=== PATIENT | male | born 1965 | race Caucasian/White ===

== ENCOUNTER 2016-06-10 17:39 | Emergency (ER) | payer OTHER ==
[2016-06-10] MEDS ORDERED: LIDOCAINE 5% PATCH ONE (19:07)
[2016-06-10] MEDS ORDERED: PREDNISONE 20 MG TABLET ONE (19:08)
== END 2016-06-10 19:52 | disposition home or self-care (01) ==
LOC: ED 17:39
DX: M54.42 Lumbago with sciatica, left side (principal); I10 Essential (primary) hypertension; E11.9 Type 2 diabetes mellitus without complications; F17.210 Nicotine dependence, cigarettes, uncomplicated; Z79.84 Long term (current) use of oral hypoglycemic drugs
CPT/HCPCS: 99283 ×2; A9270; J7512